=== PATIENT | female | born 1990 | race Caucasian/White ===

== ENCOUNTER 2024-10-23 17:44 | Emergency (ER) | payer OTHER, SELFPAY ==
--- OUTSIDE RECORDS SUMMARY | 2024-10-23 17:46 | XMS_ITS | Clinical Summary ---
Author Organization [employer] [facility] Address [place], [place] [address] Care Team Providers Care Nailhead Puncher Name Role Phone Pcp, No Primary Care Provider Unavailabl e Allergies No known active allergies Medications hu-qx-deqr-FA-C a carb-vit K (WOMEN'S MULTIVITAMIN) 18 mg iron-400 mcg-500 mg tab Take by mouth. 0 09/12/2020 Active Niwme-9-QVH-EPA -Fish Oil 1,000 mg (120 mg-180 mg) cap Take 1 capsule by mouth. 0 09/12/2020 Active vit B ntfy-K-evcou acid-vit D3 800 mcg- 2,000 unit chew Take by mouth. 0 09/12/2020 Active Active Problems Problem Noted Date Diagnosed Date Anxiety 02/16/2016 Lactating mother 02/16/2016 Uterine prolapse 04/21/2015 Overview (04/21/2015): Grade 1 Resolved Problems Problem Noted Date Diagnosed Date Resolved Date state 02/17/2016 06/28/2016 Post-term , 40-42 weeks of gestation 02/16/20 16 02/17/2016 Hx of shoulder dystocia in p rior , currently 02/16/2016 06/28/2016 Perineal laceration during d elivery, delivered 02/16/2016 06/28/2016 (normal spontaneous vaginal delivery) 02/16/2016 06/28/2016 Normal delivery 06/15/2014 06/28/2016 Prolonged first stage of labor 06/14/2014 06/28/2016 Supervision of normal first 10/15/2013 06/28/2016 Family History Medical History Relation Name Comments Good Health Father Cancer Maternal Grandfather Lung Cancer-colon Maternal Grandfather Hypertension Mother Diabetes No Family History Relation Name Status Comments Father Maternal Grandfather Mother Social History Tobacco Use Types Packs/Day Years Used Date Smoking Tobacco: Never Smokeless Tobacco: Never Tobacco Cessation:Counseling Given: Yes Alcohol Use Standard Drinks/Week Comments Not Currently 0 (1 standard drink = 0.6 oz pur e alcohol) occassionally Social Connections Answer Date Recorded Frequency of Communication with Friends and Fami ly Not on file 10/06/2021 Financial Resource Strain Answer Date R ecorded Difficulty of Paying Living Expenses Not on file 10/06/2021 Difficulty of Paying Living Expenses Not on file 10/06/2021 Comments No Sex and Gender Information Value Date Recorded Sex Assigned at Not on file Legal Sex Female 9:46 AM FOOT AND ANKLE SURGEON Gender Identity Not on file Sexual Orientation Not on file Obstetrics History Para Term AB IAB SAB Ectopic Multiple Livin g Live Births 2 2 2 2 2 Date Outcome GA Total Labor Labor/2nd/3rd Weight Sex Type Anes PTL Miguelina A1 A5 Name Clin 2013 Term 40w 5d 3.83 kg (8 lb 7 oz) F Vag Livin g 6 9 BRENNENVLAN D,BG Delivery Location:[facility] Comments:2nd degree la ceration 2015 Term 40w 0d 3.8 kg (8 lb 6 oz) M Vag None N Livin g 9 9 Brando rg, CNM Complications:None Delivery Location:[facility] Last Filed Vital Signs Vital Sign Reading Time Taken Comments Blood Pressure 109/73 09/12/2020 8:49 AM FOOT AND ANKLE SURGEON Pulse 81 09/12/2020 8:49 AM FOOT AND ANKLE SURGEON Temperature 37 C (98.6 F) 10/16/2019 10:22 AM FOOT AND ANKLE SURGEON Respiratory Rate 16 10/16/2019 10:22 AM FOOT AND ANKLE SURGEON Oxygen Saturation 100% 09/12/2020 8:49 AM FOOT AND ANKLE SURGEON Inhaled Oxygen Concentration - - Weight 51.8 kg (114 lb 3.2 oz) 09/12/2020 8:49 A M FOOT AND ANKLE SURGEON declined Height 154.9 cm (5' 1) 10/11/2019 11:02 AM FOOT AND ANKLE SURGEON Body Mass Index 21.58 10/11/2019 11:02 AM FOOT AND ANKLE SURGEON Plan of Treatment Health Maintenance Due Date Last Done Comments Tdap 2000 Tetanus booster 2009 Depression screening for age 12+ 08/23/2017 08/23/2016 BMI (ht and wt on same day) for age 18+ 10/11/2020 10/11/2019, 08/23/2016 COVID-19 vaccine series ( season) 2024 Influenza for age 9-49 06/13/2024 Pap test for age 21-65 04/14/2025 , 04/14/2022, 11/12/2013 HIV for age 15-65 Completed 10/15/2013 Hepatitis C screening for ag e 18-79 Completed 03/01/2014 Pneumococcal series for age 6-49 Aged Out No longer eligible b ased on patient's age to complete this topic Procedures Procedure Name Priority Date/Time Associated Diagnosis Comments HPV HIGH RISK Routine 04/14/2022 10:15 AM CDT ANTI HCV Routine 03/01/2014 12:00 PM CDT ANTI HIV 1/2 Routine 10/15/2013 3:39 PM FOOT AND ANKLE SURGEON Supervision of normal first from Last 3 Months or Most Recently Relevant to Health Maintenance Results * HPV HIGH RISK (04/14/2022 10:15 AM CDT) TYPE 16 Negative Negative 04/30/2022 11:20 AM CDT [facility] TYPE 18 Negative Negative 04/30/2022 11:20 AM CDT [facility] OTHER HIGH RISK TYPES Negative Negative 04/30/2022 11:20 AM CDT [facility] Other (Cervical) 04/14/2022 10:15 AM CDT 04/26/2022 4:00 PM CDT Health system LAB[facility] - 04/30/2022 11:20 AM CDT HPV types 16, 18, 31, 33, 35, 39, 45, 51, 52, 56, 58, 59, 66 and 68 DNA were undetectable or below the pre-set threshold. Methodology: Luis Jordan 4800 HPV Test Noemi Hatch CNM MICROBIOLOGY Final Resul t [facility] [address] [place] [address], * ANTI HCV (03/01/2014 12:00 PM CDT) HEPATITIS C ANTIBODY Non-Reacti ve Non-Reacti ve 03/01/2014 6:59 PM CDT [facility] Blood specimen (specimen) BLOOD SPECIMEN / Unknown Client Collect / Unknown 03/01/2014 12:00 PM CDT 03/01/2014 4:40 PM CDT Narrative [facility] - 03/01/2014 6:59 PM CDT Antibodies to HCV not detected; does not exclude the possibility of exposure to HCV. Melba Torres CNM SEND OUTS Final Result [facility] [address] [place] [address], [place] * ANTI HIV 1/2 (10/15/2013 3:39 PM FOOT AND ANKLE SURGEON) Pathologist [facility] ANTI HIV 1/2 Non-reacti ve [facility] Blood specimen (specimen) BLOOD SPECIMEN / Unknown 10/15/2013 3:39 PM FOOT AND ANKLE SURGEON 10/15/2013 3:29 PM FOOT AND ANKLE SURGEON Mica Garay SENIOR ORACLE DATABASE DEVELOPER SEND OUTS F inal Result [facility] [place]NAL ZIP [id number] [place] [address] from Last 3 Months or Most Recently Relevant to Health Maintenance Insurance [place] Advance Directives Documents on File Type Date Recorded Patient Bending Press Operator Expl anation Treatment Guidelines 02/16/2016 12:00 AM * Full Code (Latest Code Status on File) Date Activated Date Inactivated Comments 02/16/2016 1:22 PM 02/17/2016 3:38 PM * Full Code Date Activated Date Inactivated Comments 02/16/2016 7:32 AM 02/16/2016 1:22 PM * Full Code Date Activated Date Inactivated Comments 02/16/2016 4:42 AM 02/16/2016 7:32 AM * Full Code Date Activated Date Inactivated Comments 06/15/2014 1:27 AM 06/16/2014 1:03 PM * Full Code Date Activated Date Inactivated Comments 06/14/2014 11:58 AM 06/15/2014 1:27 AM Care Teams Nailhead Puncher Relationship Specialty Start Date End Date Pcp, No . PCP - General 09/12/20
[2024-10-23 18:11] VITALS: BP 101/71; PULSE 128; RESP 18; TEMP 36.7; O2SAT 98; BMI 20.1
--- NOTE | 2024-10-23 19:04 | CRLHL7_ITS ---
For Patients: As a result of the Cures Act, medical imaging exams and procedure reports are released immediately into your electronic medical record. You may view this report before your referring provider. If you have questions, please contact your health care provider. INDICATION: Cough, fever. TECHNIQUE: Chest 2 views. COMPARISON: None. FINDINGS: Cardiovascular and mediastinum: Heart size and vasculature are normal in caliber and appearance. Lungs and pleural spaces: Focal left lower lobe pneumonia. No sign of pleural effusion. No pneumothorax. Bones and soft tissues: No significant findings. IMPRESSION: Focal left lower lobe pneumonia. Dictated by Young Syed MD @ 10/23/2024 7:45:21 PM (Electronically Signed)
--- OUTSIDE RECORDS SUMMARY | 2024-10-23 19:23 | XMS_ITS | Clinical Summary ---
Author Organization [employer] [facility] Address [place], [place] [address] Care Team Providers Care Lens Inserter Name Role Phone Pcp, No Primary Care Provider Unavailabl e Allergies No known active allergies Medications cr-lw-wlaz-FA-C a carb-vit K (WOMEN'S MULTIVITAMIN) 18 mg iron-400 mcg-500 mg tab Take by mouth. 0 09/12/2020 Active Plohb-6-EVC-EPA -Fish Oil 1,000 mg (120 mg-180 mg) cap Take 1 capsule by mouth. 0 09/12/2020 Active vit B clxu-G-bnzky acid-vit D3 800 mcg- 2,000 unit chew [...] on file Legal Sex Female 9:46 AM ENDOSCOPY NURSE Gender Identity Not on file Sexual Orientation Not on file Obstetrics History Para Term AB IAB SAB Ectopic Multiple Livin g Live Births 2 2 2 2 2 Date Outcome GA Total Labor Labor/2nd/3rd Weight Sex Type Anes PTL Miguelina A1 A5 Name Clin 2013 Term 40w 5d 3.83 kg (8 lb 7 oz) F Vag Livin g 6 9 BRENNENVLAN D,BG Delivery Location:[facility] Comments:2nd degree la ceration 2015 Term 40w 0d 3.8 kg (8 lb 6 oz) M Vag None N Livin g 9 9 Brando rg, CNM Complications:None Delivery Location:[facility] Last Filed Vital Signs Vital Sign Reading Time Taken Comments Blood Pressure 109/73 09/12/2020 8:49 AM ENDOSCOPY NURSE Pulse 81 09/12/2020 8:49 AM ENDOSCOPY NURSE Temperature 37 C (98.6 F) 10/16/2019 10:22 AM ENDOSCOPY NURSE Respiratory Rate 16 10/16/2019 10:22 AM ENDOSCOPY NURSE Oxygen Saturation 100% 09/12/2020 8:49 AM ENDOSCOPY NURSE Inhaled Oxygen Concentration - - Weight 51.8 kg (114 lb 3.2 oz) 09/12/2020 8:49 A M ENDOSCOPY NURSE declined Height 154.9 cm (5' 1) 10/11/2019 11:02 AM ENDOSCOPY NURSE Body Mass Index 21.58 10/11/2019 11:02 AM ENDOSCOPY NURSE Plan of Treatment Health Maintenance Due Date [...] ANTI HIV 1/2 Routine 10/15/2013 3:39 PM ENDOSCOPY NURSE Supervision of normal first from Last 3 Months or Most Recently Relevant to Health Maintenance Results * HPV HIGH RISK (04/14/2022 10:15 AM CDT) TYPE 16 Negative Negative 04/30/2022 11:20 AM CDT [facility] TYPE 18 Negative Negative 04/30/2022 11:20 AM CDT [facility] OTHER HIGH RISK TYPES Negative Negative 04/30/2022 11:20 AM CDT [facility] Other (Cervical) 04/14/2022 10:15 AM CDT 04/26/2022 4:00 PM CDT [facility] LABORATORY-CENTRAL LAB[facility]ATORY - 04/30/2022 11:20 AM CDT HPV types 16, 18, 31, 33, 35, 39, 45, 51, 52, 56, 58, 59, 66 and 68 DNA were undetectable or below the pre-set threshold. Methodology: Luis Jordan 4800 HPV Test Noemi Hatch CNM MICROBIOLOGY Final Resul t [facility] [address] [place] [address], * ANTI HCV (03/01/2014 12:00 PM CDT) HEPATITIS C ANTIBODY Non-Reacti ve Non-Reacti ve 03/01/2014 6:59 PM CDT [facility] Blood specimen (specimen) BLOOD SPECIMEN / Unknown Client Collect / Unknown 03/01/2014 12:00 PM CDT 03/01/2014 4:40 PM CDT Narrative [facility] - 03/01/2014 6:59 PM CDT Antibodies to HCV not detected; does not exclude the possibility of exposure to HCV. Melba Torres CNM SEND OUTS Final Result [facility] [address] [place] [address], [place] * ANTI HIV 1/2 (10/15/2013 3:39 PM ENDOSCOPY NURSE) Pathologist [facility] ANTI HIV 1/2 Non-reacti ve [facility] Blood specimen (specimen) BLOOD SPECIMEN / Unknown 10/15/2013 3:39 PM ENDOSCOPY NURSE 10/15/2013 3:29 PM ENDOSCOPY NURSE Mica Garay INVESTIGATOR FRAUD SEND OUTS F inal Result [facility] INTERNAL ZIP [id number] [place] [address] from Last 3 Months or Most Recently Relevant to Health Maintenance Insurance [place] [place] Advance Directives Documents on File Type Date Recorded Patient Television Receiver Analyzer Expl anation Treatment Guidelines 02/16/2016 12:00 AM [...] 11:58 AM 06/15/2014 1:27 AM Care Teams Lens Inserter Relationship Specialty Start Date End Date Pcp, No . PCP - General 09/12/20
[2024-10-23 19:25] LABS: Lactate Sepsis w/Reflex* 1.1 mmol/L (0.5-1.9)
[2024-10-23 19:27] LABS: Basophils Absolute Auto 0.02 K/uL (0.00-0.30); Basophils Percent Auto 0.3 % (0.0-3.0); Hematocrit 42.7 % (33.0-51.0); Hemoglobin* 14.6 gm/dL (12.0-16.0); Immature Granulocytes Abs Auto 0.01 K/uL (0.00-0.30); Immature Granulocytes Pct Auto 0.2 %; Mean Corpuscular HGB Conc 34 gm/dL (32-36); Mean Corpuscular Hemoglobin 30 pg (26-34); Mean Corpuscular Volume 88 fL (80-100); Monocytes Percent Auto 6.8 % (0.0-11.0); Neutrophils Percent Auto 80.7 % (42.0-72.0); Platelet Count* 149 K/uL (140-440); RDW Coefficient of Variation % 11.8 % (11.5-15.5); Red Blood Count 4.86 m/uL (4.00-5.20)
[2024-10-23 19:30] LABS: Slide Review Reflex No
[2024-10-23 19:39] LABS: Chloride* 100 mmol/L (96-114); Sodium* 132 mmol/L (135-149)
[2024-10-23 19:40] LABS: Potassium* 3.8 mmol/L (3.6-5.1)
[2024-10-23 19:41] LABS: Albumin* 4.4 g/dL (3.3-5.0)
[2024-10-23 19:42] LABS: Creatinine* 0.8 mg/dL (0.5-1.5); Est. Creatinine Clearance* 78.05; Estimated Glomerular Filt Rate 99 ml/min
[2024-10-23 19:43] LABS: Anion Gap 10 mEq/L (7-15); Bilirubin Direct* 0.3 mg/dL (0.0-0.5); Bilirubin Total* 0.5 mg/dL (0.1-1.5); Blood Urea Nitrogen* 12 mg/dL (5-24); Calcium* 8.9 mg/dL (8.4-10.6); Carbon Dioxide* 22 mmol/L (20-32); Glucose* 114 mg/dL (60-115); Total Protein* 7.9 g/dL (6.0-8.3)
[2024-10-23 19:44] LABS: Alanine Aminotransferase* 23 U/L (4-35); Alkaline Phosphatase* 57 U/L (40-150); Aspartate Amino Transferase* 28 U/L (12-35); D Dimer Quantitative* 0.95 ug/ml (0.00-0.50)
[2024-10-23 19:46] LABS: C Reactive Protein* 7.8 mg/dL (0.5-1.0)
--- NOTE | 2024-10-23 19:54 | CRLHL7_ITS ---
For Patients: As a result of the Century Cures Act, medical imaging exams and procedure reports are released immediately into your electronic medical record. You may view this report before your referring provider. If you have questions, please contact your health care provider. INDICATION: Elevated D-dimer, chest pain, pneumonia. TECHNIQUE: CT chest PE was acquired with 95 cc Isovue 370 IV contrast. COMPARISON: None. FINDINGS: Heart and vasculature: Contrast opacification of the pulmonary arterial tree is adequate. No sign of pulmonary embolism. Heart size is normal. Thoracic aorta and pulmonary artery are normal in caliber. Lungs and pleura: No suspicious nodules or infiltrates. No pleural effusions, pleural thickening, or pneumothorax. Lymph nodes/mediastinum: Mildly enlarged left hilar lymph nodes, likely reactive. Chest wall: No masses. Upper abdomen: No acute or significant findings. Bones: Unremarkable for age. IMPRESSION: No pulmonary embolism. Focal left lower lobe pneumonia. Please note that all CT scans at this facility use dose modulation, iterative reconstruction, and/or weight-based dosing when appropriate to reduce radiation dose to as low as reasonably achievable. Dictated by Young Syed MD @ 10/23/2024 8:42:46 PM (Electronically Signed)
--- NOTE | 2024-10-25 02:07 | ED.GENADULT ---
HPI - General Adult General Date Seen: 10/23/24 Chief complaint: Shortness of Breath/Dyspnea Stated complaint: trouble breathing Time Seen by Provider: 10/23/24 18:53 History of Present Illness HPI narrative: Patient is a 33-year-old woman who presents with about a 4 day history of feeling poorly. She has had some back pain, cough, fevers up to 102, has not felt significantly short of breath, has felt extremely fatigued and achy. She has done a COVID test and a flu test at home which she says were negative. She does have a child who is sick. She has not specifically had chest pain but she does have pain in her back that is worse with coughing or breathing. She has not had vomiting or diarrhea. No unusual rashes. No urinary symptoms. Medications reviewed and include an estrogen vaginal ring. She does not smoke, no significant alcohol use. No drug use. Related Data Previous Rx's ?Medication ?Instructions ?Recorded etonogestrel 0.12 mg-ethinyl 1 vag ring vaginal Q4W #3 ea 01/10/23 estradiol 0.015 mg/24 hr vaginal ring (NuvaRing) azithromycin 200 mg/5 mL oral See Rx Instructions .Route 10/23/24 suspension .COMPLEX #40 mL codeine 10 mg-guaifenesin 100 mg/5 5 ml PO Q6H PRN #120 mL 10/23/24 mL oral liquid (Guaifenesin AC) Allergies Allergy/AdvReac Type Severity Reaction Status Date / Time prednisone Allergy Unknown Verified 10/23/24 18:15 Cashew Nut Oil AdvReac Severe Throat Uncoded 02/25/24 11:44 swelling Bee venom AdvReac Intermediate Site Uncoded 02/25/24 11:44 swelling Review of Systems Status of ROS: Reports: 10 or more systems reviewed and unremarkable except as noted in History and below [facility] Social History Smoking Status: Never smoker Exam Narrative: Exam Narrative: Vital signs reviewed In general, alert, nontoxic young woman. She looks pretty fatigued. She is breathing easily. Head: Normocephalic, atraumatic. Eyes: Sclera clear. Pupils equal and reactive. ENT: Mucous membranes moist. Neck: Supple without adenopathy. Heart: Regular rate and rhythm without murmur. Lungs: Breath sounds are decreased on the left, I do not hear significant adventitious sounds. Abdomen: Soft, nontender to palpation. Extremities: Well perfused, pulses intact. No significant edema. Neurologic: Alert, conversant. Speech fluent, face symmetric. Moves all extremities equally. Skin: Warm, dry well perfused. Affect: Normal. Const: Documenting provider has reviewed patient's vital signs: yes Course Course ED Course: We placed an IV here, she was tachycardic, improved with a L of normal saline. I ordered labs as well as a chest x-ray. By my review on chest x-ray she appeared to have the left lower lobe infiltrate. Labs were notable for a normal white blood cell count but a left shift with 81% neutrophils. Metabolic panel was unremarkable. CRP was elevated at 7.8, procalcitonin was normal at 0.1. I had done a D-dimer initially and this was elevated at 0.95. This is likely related to a pneumonia, but with tachycardia and estrogen, I elected to do a CT scan of the chest to rule out pulmonary embolism. By my review this is negative for PE but does show a large left-sided infiltrate. Final radiology report agrees with the left lower lobe infiltrate and absence of PE. Report linked below. She feels somewhat better after fluids, she is not hypoxic, overall I think it is reasonable to send her home on amoxicillin and azithromycin for community-acquired pneumonia. She declined additional viral testing today which I think is reasonable. We discussed that she should be feeling somewhat better over the next 48 hours and if not should be seen again. Return at any time for significant worsening, difficulty breathing, uncontrolled vomiting or other concerning symptoms. Vital Signs Vital signs: Initial Vital Signs Temperature 98.0 F 10/23/24 18:11 Temperature Source Temporal Artery Scan 10/23/24 18:11 Pulse Rate 128 H 10/23/24 18:11 Pulse Rhythm Regular 10/23/24 18:11 Respiratory Rate 18 10/23/24 18:11 Blood Pressure 101/71 10/23/24 18:11 Blood Pressure Mean 81 10/23/24 18:11 Blood Pressure Position Sitting 10/23/24 18:11 Pulse Oximetry 98 10/23/24 18:11 Oxygen Delivery Method Room Air 10/23/24 18:11 Vital Signs Temperature 98.0 F 10/23/24 18:11 Pulse Rate 128 H 10/23/24 18:11 Respiratory Rate 18 10/23/24 18:11 Blood Pressure 101/71 10/23/24 18:11 Pulse Oximetry 98 10/23/24 18:11 Oxygen Delivery Method Room Air 10/23/24 18:11 Temperature 98.0 F 10/23/24 18:11 Pulse Rate 128 H 10/23/24 18:11 Respiratory Rate 18 10/23/24 18:11 Blood Pressure 101/71 10/23/24 18:11 Pulse Oximetry 98 10/23/24 18:11 Oxygen Delivery Method Room Air 10/23/24 18:11 Medical Decision Making Lab Data Labs: Lab Results 10/23/24 Range/Units 19:16 WBC 5.90 (4.50-11.00) K/uL RBC 4.86 (4.00-5.20) m/uL Hgb 14.6 (12.0-16.0) gm/dL Hct 42.7 (33.0-51.0) % MCV 88 (80-100) fL MCH 30 (26-34) pg MCHC 34 (32-36) gm/dL RDW Coeff of Jovany 11.8 (11.5-15.5) % Plt Count 149 (140-440) K/uL Neut % (Auto) 80.7 H (42.0-72.0) % Lymph % (Auto) 12.0 L (20-44) % Baxter % (Auto) 6.8 (0.0-11.0) % Eos % (Auto) 0.0 (0.0-7.0) % Baso % (Auto) 0.3 (0.0-3.0) % Neut # (Auto) 4.80 (1.7-7.0) K/uL Lymph # (Auto) 0.70 L (0.90-2.90) K/uL Baxter # (Auto) 0.40 (0.00-0.90) K/UL Eos # (Auto) 0.00 (0.00-0.50) K/uL Baso # (Auto) 0.02 (0.00-0.30) K/uL Abs Immat Gran (auto) 0.01 (0.00-0.30) K/uL Imm/Tot Granulo (auto) 0.2 % D-Dimer Quant (PE/DVT) 0.95 H (0.00-0.50) ug/ml Sodium 132 L (135-149) mmol/L Potassium 3.8 (3.6-5.1) mmol/L Chloride 100 (96-114) mmol/L Carbon Dioxide 22 (20-32) mmol/L Anion Gap 10 (7-15) mEq/L BUN 12 (5-24) mg/dL Creatinine 0.8 (0.5-1.5) mg/dL Estimated Creat Clear 78.05 Estimated GFR 99 ml/min Glucose 114 (60-115) mg/dL Lactate 1.1 (0.5-1.9) mmol/L Calcium 8.9 (8.4-10.6) mg/dL Total Bilirubin 0.5 (0.1-1.5) mg/dL Direct Bilirubin 0.3 (0.0-0.5) mg/dL AST 28 (12-35) U/L ALT 23 (4-35) U/L Alkaline Phosphatase 57 (40-150) U/L C-Reactive Protein 7.8 H (0.5-1.0) mg/dL Total Protein 7.9 (6.0-8.3) g/dL Albumin 4.4 (3.3-5.0) g/dL Procalcitonin 0.10 (<0.50) ng/mL Imaging Data Chest x-ray: Attestation: I have reviewed the pertinent imaging results. Radiologist's impression: [place] [address] Diagnostic Imaging Report Patient: Kasia Coronado MR#: [id number] : 1990 Acct:[id number] Loc: ED Service Date: 10/23/[address]: Ordering Physician: Ely Nassar M.D. Date of Service: 10/23/24 Procedure(s): XR chest 2V Accession Number(s): [id number] cc: Ely Nassar M.D.; Provider,Not a Local~ For Patients: As a result of the Century Cures Act, medical imaging exams and procedure reports are released immediately into your electronic medical record. You may view this report before your referring provider. If you have questions, please contact your health care provider. INDICATION: Cough, fever. TECHNIQUE: Chest 2 views. COMPARISON: None. FINDINGS: Cardiovascular and mediastinum: Heart size and vasculature are normal in caliber and appearance. Lungs and pleural spaces: Focal left lower lobe pneumonia. No sign of pleural effusion. No pneumothorax. Bones and soft tissues: No significant findings. IMPRESSION: Focal left lower lobe pneumonia. Dictated by Young Syed MD @ 10/23/2024 7:45:[address] scan - chest: Attestation: I have reviewed the pertinent imaging results. Radiologist's impression: Patient: Kasia Coronado MR#: [id number] : 1990 Acct:[id number] Loc: ED Service Date: 10/23/[address]: Ordering Physician: Ely Nassar M.D. Date of Service: 10/23/24 Procedure(s): CT angio chest PE protocol Accession Number(s): [id number] cc: Ely Nassar M.D.; Provider,Not a Local~ ADDENDUM INDICATION: Elevated D-dimer, chest pain, pneumonia. TECHNIQUE: CT chest PE was acquired with 95 cc Isovue 370 IV contrast. COMPARISON: None. FINDINGS: Heart and vasculature: Contrast opacification of the pulmonary arterial tree is adequate. No sign of pulmonary embolism. Heart size is normal. Thoracic aorta and pulmonary artery are normal in caliber. Lungs and pleura: No suspicious nodules or infiltrates. No pleural effusions, pleural thickening, or pneumothorax. Lymph nodes/mediastinum: Mildly enlarged left hilar lymph nodes, likely reactive. Chest wall: No masses. Upper abdomen: No acute or significant findings. Bones: Unremarkable for age. IMPRESSION: No pulmonary embolism. Focal left lower lobe pneumonia. Please note that all CT scans at this facility use dose modulation, iterative reconstruction, and/or weight-based dosing when appropriate to reduce radiation dose to as low as reasonably achievable. Dictated by Young Syed MD @ 10/23/2024 8:42:46 PM ----- ADDENDUM ----- Addendum: Lungs and pleura: Left lower lobe focal dense consolidation with surrounding ground-glass nodularity. No pleural effusions, pleural thickening, or pneumothorax. Dictated by Young Syed MD @ Oct 23 2024 8:43PM (Electronically Signed) For Patients: As a result of the Century Cures Act, medical imaging exams and procedure reports are released immediately into your electronic medical record. You may view this report before your referring provider. If you have questions, please contact your health care provider. INDICATION: Elevated D-dimer, chest pain, pneumonia. TECHNIQUE: CT chest PE was acquired with 95 cc Isovue 370 IV contrast. COMPARISON: None. FINDINGS: Heart and vasculature: Contrast opacification of the pulmonary arterial tree is adequate. No sign of pulmonary embolism. Heart size is normal. Thoracic aorta and pulmonary artery are normal in caliber. Lungs and pleura: No suspicious nodules or infiltrates. No pleural effusions, pleural thickening, or pneumothorax. Lymph nodes/mediastinum: Mildly enlarged left hilar lymph nodes, likely reactive. Chest wall: No masses. Upper abdomen: No acute or significant findings. Bones: Unremarkable for age. IMPRESSION: No pulmonary embolism. Focal left lower lobe pneumonia. Please note that all CT scans at this facility use dose modulation, iterative reconstruction, and/or weight-based dosing when appropriate to reduce radiation dose to as low as reasonably achievable. Dictated by Young Syed MD @ 10/23/2024 8:42:46 PM Discharge Plan Discharge Clinical Impression: Pneumonia involving left lung Patient Disposition: Home, Self-Care Condition: Improved Instructions: Community Acquired Pneumonia (DC) Additional Instructions: Take amoxicillin and azithromycin as prescribed. I have also prescribed Robitussin with codeine, this may help with nighttime cough and sleep. I would expected to be feeling improved within 48 hours. If not we should see you back. Likewise if at any point you feel significantly worse, have shaking chills, vomiting, difficulty breathing, return for re-evaluation. Activity Level: No Restrictions Prescriptions: New azithromycin 200 mg/5 mL suspension for reconstitution See Rx Instructions .ROUTE .COMPLEX Qty: 40 0RF Taper: AZITH 200 MG SUSP 500 mg Q24H for 1 Day and 0 Hour 250 mg Q24H for 4 Days and 0 Hour Rx Instructions: See Taper orally ;orally; codeine-guaifenesin [Guaifenesin AC] 10-100 mg/5 mL liquid 5 ml PO Q6H PRNQty: 120 0RF No Action etonogestrel-ethinyl estradiol [NuvaRing] 0.12-0.015 mg/24 hr ring 1 vag ring vaginal Q4W Qty: 3 4RF Rx Instructions: leave in place for 3 weeks of a 4-week cycle Follow Up/Referrals: Provider,Not a Local [Primary Care Provider] - Stand Alone Forms: [employer] Info Instructions
== END 2024-10-23 21:19 | disposition home or self-care (01) ==
PROVIDERS: Emergency Provider Emergency Medicine
DX: J18.9 Pneumonia, unspecified organism (principal)
CPT/HCPCS: 36415; 71046; 71275; 80048; 80076; 83605; 84145; 85025; 85379; 86140; 99284; Q9967

== ENCOUNTER 2025-08-16 17:21 | Outpatient (CLI) | payer OTHER, SELFPAY | END 2025-08-16 17:22 | disposition home or self-care (01) | LOC: NFLDREF 08-19 15:24 | PROVIDERS: Visit Provider Physician Assistant Surgical | DX: N30.01 Acute cystitis with hematuria (principal) | CPT/HCPCS: 87086 ==